=== PATIENT | female | born 1965 | race Caucasian/White ===

== ENCOUNTER 2017-10-27 06:11 | Day surgery (SDC) | payer OTHER ==
[2017-10-17 12:30] VITALS: BMI 31.1
--- NOTE | 2017-10-26 18:50 | HP ---
HISTORY OF PRESENT ILLNESS: Ms. Herrera presents with history of low back and left leg pains, mostly i n L3, partially L4 pattern. She has a history of prior lumbar spinal procedures, which is a lumbar d iskectomy with an anterior lumbar interbody fusion. She has treated this all with injections, physic al therapy and medications, none of which have provided persistent long lasting relief. She had an M RI that reveals a left-sided disk protuberance of the left, which encroaches upon the left L3 nerve r oot and would likely explain the symptoms that she has. PAST MEDICAL HISTORY: No significant medical history. PAST SURGICAL HISTORY: L5-S1 ALIF, D and C. ALLERGIES: FLAGYL. PHYSICAL EXAMINATION: GENERAL: The patient is alert and oriented x3. Gait is mildly antalgic. EXTREMITIES: Lower extremity motor exam is normal. Reflexes are equal and present bilaterally at th e patella. ASSESSMENT: Lumbar herniated disk with radiculopathy. PLAN: Dr. Ceja met with the patient, reviewed imaging and advocated for lumbar diskectomy. He expl ained to the patient the risks, benefits and alternatives to the procedure. The patient expressed un derstanding and would like to move forward with surgery as discussed. I do believe that the patient is mentally competent and capable of making medical decisions for herself and we will move forward wi surgery as planned. Magan Pérez PA-C, dictating under Dr. Ceja.
[2017-10-27] MEDS ORDERED: Midazolam HCl 2 mg/2 ml Vial ONE ×2 (07:21→09:06)
[2017-10-27] MEDS ORDERED: CEFAZOLIN/Water 2 GM/20 ML SYRINGE ONE ×2 (07:28→14:53)
[2017-10-27] MEDS ORDERED: Thrombin 5000 UNITS/5 ML VIAL ONE (08:21)
[2017-10-27] MEDS ORDERED: Bupivacaine HCl 0.5%/Epinephrine 1:200,000/PF 30 ml Vial ONE (08:21)
[2017-10-27] MEDS ORDERED: Fentanyl 100 MCG/2 ML VIAL ONE ×3 (08:55→11:06)
[2017-10-27] MEDS ORDERED: Ondansetron HCl/PF 4 MG/2 ML Vial ONE (09:03)
[2017-10-27] MEDS ORDERED: Scopolamine 1.5 mg/72 hour Patch ONE (09:03)
[2017-10-27] MEDS ORDERED: Cyclobenzaprine 10 MG TAB ONE (11:09)
[2017-10-27] MEDS ORDERED: Dexamethasone 4 mg/ml Vial ONE (11:30)
--- NOTE | 2017-10-27 12:03 | OP ---
DATE OF PROCEDURE: 10/27/2017 SURGEON: Scott Ceja M.D. SUCTION PLATE ROLLER HAND: Magan Pérez PA-C. INDICATION: Pain. DIAGNOSIS: Lumbar radiculopathy. PROCEDURES PERFORMED: Left L3-L4 hemilaminectomy, medial facetectomy, and discectomy. ANESTHESIA: General. TECHNIQUE: The patient was brought into the operating room and placed under general anesthesia. She was flipped from a supine to a prone position on the operating room table. A linear incision was pl anned over the L3-L4 segment. After prepping and draping and after an appropriate operative pause, t he incision was created. Soft tissues were swept away left of midline. A self-retaining retractor w as placed in the wound for optimal exposure. After confirming the appropriate level, C-arm fluorosco py and high-speed cutting drill bit was used to perform a laminectomy along the inferior aspect of L3 and the superior aspect of L4. The thecal sac was identified and mobilized medially. An 11 blade k nife was used to perform an annulotomy in the disk space. Disk material was removed within the malathi en. This was accomplished by going subannular. In the end, the exiting L3 nerve root as well as lynda cending L4 nerve roots were well decompressed. The wound was irrigated. Hemostasis was maintained t hroughout. The wound was then closed in anatomic layers and a pressure dressing was applied. There were no known procedure complications.
[2017-10-27] MEDS ORDERED: HYDROcodone/Acetaminophen 5/325 mg Tablet ONE (12:44)
== END 2017-10-27 15:40 | disposition home or self-care (01) ==
LOC: SDC 06:11
PROVIDERS: ATTEND Neurological Surgery
PROC: 01NB0ZZ Release Lumbar Nerve, Open Approach (ICD-10-PCS; principal; 2017-10-27)
PROC: 0SB20ZZ Excision of Lumbar Vertebral Disc, Open Approach (ICD-10-PCS; principal; 2017-10-27)
DX: M54.16 Radiculopathy, lumbar region (principal); Z88.8 Allergy status to other drugs, medicaments and biological substances; Z98.890 Other specified postprocedural states
CPT/HCPCS: 76001; 96374; J0670; J1100; J2250; J2405; J3010